=== PATIENT | female | born 2000 | race Caucasian/White ===

== ENCOUNTER 2021-07-08 16:11 | Emergency (ER) | payer BC ==
[2021-07-08 16:40] LABS: Absolute Lymphocytes (CBC) 2.1 K/uL (0.7-4.9); Hematocrit 32.2 % (36.0-45.0); Lymphocytes % 23.2 % (15.3-44.8); MPV 7.5 fL (7.6-11.3); RBC Red Blood Cell Count 3.58 M/uL (3.86-4.86)
[2021-07-08 17:02] LABS: ALT/SGPT 16 U/L (12-78); AST/SGOT 11 U/L (15-37); Albumin 2.6 g/dL (3.4-5.0); Alkaline Phosphatase 59 U/L (45-117); BUN Blood Urea Nitrogen 9 mg/dL (7-18); Bicarbonate 20 mmol/L (21-32); Bilirubin Total 0.2 mg/dL (0.2-1.0); Glucose Level 106 mg/dL (74-106); Potassium 3.1 mmol/L (3.5-5.1); Protein, Total 6.8 g/dL (6.4-8.2); Sodium Level 137 mmol/L (136-145)
--- NOTE | 2021-07-08 17:20 | RAD REPORT ---
EXAM DESCRIPTION: US - OB Limited - 07/08/2021 5:00 pm CLINICAL HISTORY: with abdominal pain status post trauma COMPARISON: None FINDINGS: Limited examination performed to assess for viability, placenta, cervix and the amni otic fluid. A single live intrauterine is in cephalic presentation. The placenta is anterior. No subchorionic/ retroplacental bleed. The amniotic fluid is within normal limits. Cardiac activity 136 beats per minute beats per minute. Cervix 3.9 centimeters Right ovary appears normal in size and echotexture. Left ovary was not seen. Femur length 3.2 centimeters 19 weeks 6 days Right adnexal unremarkable. Limited evaluation of left at adnexa secondary overlying bowel gas IMPRESSION: A single live intrauterine in cephalic presentation No subchorionic/retroplacental bleed Normal amniotic fluid
[2021-07-08 17:21] LABS: Urine Blood Negative (Negative); Urine Glucose Negative (Negative); Urine Protein Negative (Negative); Urine Specific Gravity 1.015 (1.005-1.030); Urine pH 7.5 (5.0-7.0)
[2021-07-08] MEDS ORDERED: POTASSIUM 25 MEQ EFFERV TAB ONE (17:23)
[2021-07-08] MEDS ORDERED: NA CHLORIDE 0.9% 1,000 ML ONE (17:23)
--- NOTE | 2021-07-08 17:28 | ER ---
Nurse's Notes [facility] Name: Mignon Osei Age: 20 yrs Sex: Female : 2000 Arrival Date: 07/08/2021 Time: 16:13 Bed 24 Private MD: Diagnosis: Fall (on) (from) unspecified stairs and steps;18 weeks gestation of ;Contusion of abdominal wall;Hypokalemia Presentation: 07/08 16:15 Initial Sepsis Screen: Does the patient meet any 2 criteria? HR > 90 bpm. No. Patient's tb3 initial sepsis screen is negative. Does the patient have a suspected source of infection? No. Patient's initial sepsis screen is negative. Risk Assessment: Do you want to hurt yourself or someone else? Patient reports no desire to harm self or others. Onset of symptoms was July 08, 2021. Care prior to arrival: IV initiated. 20 GA, in the right antecubital area, Glucose check: 109. Activity prior to arrival: None. Transition of care: patient was not received from another setting of care. 16:15 Acuity: ALDO 3 tb3 16:37 Chief complaint: EMS states: Per EMS patient tripped and fell and began to have RUQ tb3 abdominal pain and lower abdominal pain and cramping. Patient reported pain 4/10. Denies vaginal bleeding or back pain. GCS 15. VS stable. 19wks gestation. . Coronavirus screen: Vaccine status: Patient reports being unvaccinated. At this time, the client does not indicate any symptoms associated with coronavirus-19. Ebola Screen: No symptoms or risks identified at this time. 16:37 Method Of Arrival: EMS: [facility] tb3 Triage Assessment: 16:45 General: Appears in no apparent distress. Behavior is calm, cooperative, appropriate tb3 for age. Pain: Complains of pain in abdomen Pain currently is 4 out of 10 on a pain scale. Quality of pain is described as aching, crampy. 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 - Social history:: Smoking status: Patient denies any tobacco usage or history of. Patient uses Patient/guardian denies using alcohol, street drugs, IV drugs, The patient lives No barriers to communication noted. - Family history:: not pertinent. - Code Status:: Full code. - Coronavirus screen:: The patient has NOT traveled to [place] in the past 14 days. Proceed with normal triage process as indicated. The patient has NOT had contact with known/suspected case of Coronavirus? Proceed with normal triage procedures. - Ebola Screening: : Patient negative for fever greater than or equal to 101.5 degrees Fahrenheit, and additional compatible Ebola Virus Disease symptoms Patient denies exposure to infectious person Patient denies travel to an Ebola-affected area in the 21 days before illness onset No symptoms or risks identified at this time. Screenin:00 Abuse screen: Denies threats or abuse. Denies injuries from another. Nutritional jl7 screening: No deficits noted. Tuberculosis screening: No symptoms or risk factors identified. Fall Risk IV access (20 points). Vital Signs: 16:37 BP 111 / 77 LA Sitting (auto/reg); Pulse 93 MON; Resp 18 S; Temp 98.4(O); Pulse Ox 99% tb3 on R/A; Weight 44.45 kg (R); Height 5 ft. 2 in. (157.48 cm) (R); Pain 4/10; 16:37 Body Mass Index 17.92 (44.45 kg, 157.48 cm) tb3 ED Course: 16:13 Patient arrived in ED. drew 16:13 Rigoberto Shabazz MD is Attending Physician. drew 16:24 Brain Anne RN is Primary Nurse. jl7 16:45 Triage completed. tb3 16:45 Arm band placed on. tb3 17:00 Patient has correct armband on for positive identification. jl7 17:01 US OB Limited In Process Unspecified. EDMS 17:28 Scottie Almanzar MD is Referral Physician. drew 17:56 No provider procedures requiring assistance completed. IV discontinued, intact, jl7 bleeding controlled, No redness/swelling at site. Pressure dressing applied. Administered Medications: 17:55 Drug: Potassium Effervescent Tablet 25 mEq Route: PO; jl7 17:55 Follow up: Response: Medication administered at discharge. jl7 17:56 Not Given (Patient Refused): NS 0.9% 1000 ml IV at 1 bolus Per protocol; 1000 mL bolus jl7 Outcome: 17:28 Discharge ordered by . drew 17:56 Discharged to home ambulatory. jl7 17:56 Condition: stable 17:56 Discharge instructions given to patient, family, Instructed on discharge instructions, follow up and referral plans. medication usage, Demonstrated understanding of instructions, follow-up care, medications, Prescriptions given X 1. 17:57 Patient left the ED. jl7 Signatures: Dispatcher [employer] EDMS Rigoberto Shabazz MD MD cha Leal, Jahala, RN RN jl7 Antonio Silva, RN RN tb3
--- NOTE | 2021-07-08 17:28 | EDPHYS ---
Physician Documentation [facility] Name: Mignon Osei Age: 20 yrs Sex: Female : 2000 Arrival Date: 07/08/2021 Time: 16:13 Bed 24 Private MD: ED Physician Rigoberto Shabazz HPI: 07/08 17:14 This 20 yrs old Female presents to ER via EMS with complaints of fall, drew stairs, right side pain, 18 week . 17:14 The patient presents with abdominal pain in the right upper quadrant, right lower drew quadrant. Onset: The symptoms/episode began/occurred just prior to arrival. The patient complains of pain in the right mid back and right low back. The pain does not radiate. Onset: The symptoms/episode began/occurred just prior to arrival. Modifying factors: The symptoms are alleviated by remaining still, the symptoms are aggravated by movement. The symptoms do not radiate. Associated signs and symptoms: The patient has no apparent associated signs or symptoms. The symptoms are described as crampy. 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 - Social history:: Smoking status: Patient denies any tobacco usage or history of. Patient uses Patient/guardian denies using alcohol, street drugs, IV drugs, The patient lives No barriers to communication noted. - Family history:: not pertinent. - Code Status:: Full code. - Coronavirus screen:: The patient has NOT traveled to [place] in the past 14 days. Proceed with normal triage process as indicated. The patient has NOT had contact with known/suspected case of Coronavirus? Proceed with normal triage procedures. - Ebola Screening: : Patient negative for fever greater than or equal to 101.5 degrees Fahrenheit, and additional compatible Ebola Virus Disease symptoms Patient denies exposure to infectious person Patient denies travel to an Ebola-affected area in the 21 days before illness onset No symptoms or risks identified at this time. ROS: 17:14 Constitutional: Negative for fever, chills, and weight loss, Eyes: Negative for injury, drew pain, redness, and discharge, ENT: Negative for injury, pain, and discharge, Neck: Negative for injury, pain, and swelling, Cardiovascular: Negative for chest pain, palpitations, and edema, Respiratory: Negative for shortness of breath, cough, wheezing, and pleuritic chest pain, Back: Negative for injury and pain, : Negative for injury, bleeding, discharge, and swelling, MS/Extremity: Negative for injury and deformity, Skin: Negative for injury, rash, and discoloration, Neuro: Negative for headache, weakness, numbness, tingling, and seizure, Psych: Negative for depression, anxiety, suicide ideation, homicidal ideation, and hallucinations, Allergy/Immunology: Negative for hives, rash, and allergies, Endocrine: Negative for neck swelling, polydipsia, polyuria, polyphagia, and marked weight changes, Hematologic/Lymphatic: Negative for swollen nodes, abnormal bleeding, and unusual bruising. 17:14 Abdomen/GI: Positive for abdominal distension, of the posterior aspect of right lateral abdomen and anterior aspect of right lateral abdomen. Exam: 17:14 Constitutional: This is a well developed, well nourished patient who is awake, alert, drew and in no acute distress. Head/Face: Normocephalic, atraumatic. Eyes: Pupils equal round and reactive to light, extra-ocular motions intact. Lids and lashes normal. Conjunctiva and sclera are non-icteric and not injected. Cornea within normal limits. Periorbital areas with no swelling, redness, or edema. ENT: Nares patent. No nasal discharge, no septal abnormalities noted. Tympanic membranes are normal and external auditory canals are clear. Oropharynx with no redness, swelling, or masses, exudates, or evidence of obstruction, uvula midline. Mucous membranes moist. Neck: Trachea midline, no thyromegaly or masses palpated, and no cervical lymphadenopathy. Supple, full range of motion without nuchal rigidity, or vertebral point tenderness. No Meningismus. Chest/axilla: Normal chest wall appearance and motion. Nontender with no deformity. No lesions are appreciated. Cardiovascular: Regular rate and rhythm with a normal S1 and S2. No gallops, murmurs, or rubs. Normal PMI, no JVD. No pulse deficits. Respiratory: Lungs have equal breath sounds bilaterally, clear to auscultation and percussion. No rales, rhonchi or wheezes noted. No increased work of breathing, no retractions or nasal flaring. Back: No spinal tenderness. No costovertebral tenderness. Full range of motion. Skin: Warm, dry with normal turgor. Normal color with no rashes, no lesions, and no evidence of cellulitis. MS/ Extremity: Pulses equal, no cyanosis. Neurovascular intact. Full, normal range of motion. Neuro: Awake and alert, GCS 15, oriented to person, place, time, and situation. Cranial nerves II-XII grossly intact. Motor strength 5/5 in all extremities. Sensory grossly intact. Cerebellar exam normal. Normal gait. 17:14 Abdomen/GI: Inspection: gravid appearance, is noted, Bowel sounds: normal, Palpation: mild abdominal tenderness, in the posterior aspect of right lateral abdomen, anterior aspect of right lateral abdomen, right upper quadrant and right lower quadrant, Liver: no appreciated palpable abnormalities, Hernia: not appreciated. Vital Signs: 16:37 BP 111 / 77 LA Sitting (auto/reg); Pulse 93 MON; Resp 18 S; Temp 98.4(O); Pulse Ox 99% tb3 on R/A; Weight 44.45 kg (R); Height 5 ft. 2 in. (157.48 cm) (R); Pain 4/10; 16:37 Body Mass Index 17.92 (44.45 kg, 157.48 cm) tb3 MDM: 16:13 Patient medically screened. drew 17:18 Differential diagnosis: UTI, non-specific abd pain, urinary tract infection. Data drew reviewed: vital signs, nurses notes, lab test result(s), radiologic studies, ultrasound. Data interpreted: nurse monitoring: rate is 93 beats/min, rhythm is regular, Pulse oximetry: on room air is 99 %. Counseling: I had a detailed discussion with the patient and/or guardian regarding: the historical points, exam findings, and any diagnostic results supporting the discharge/admit diagnosis, lab results, radiology results, the need for outpatient follow up, for definitive care, an OB/Gyne specialist. 07/08 16:15 Order name: CBC with Diff; Complete Time: 17:07 [facility] 07/08 16:15 Order name: Comprehensive Metabolic Panel; Complete Time: 17:07 [facility] 07/08 16:15 Order name: US OB Limited; Complete Time: 17:22 [facility] 07/08 16:15 Order name: Abo/rh Typing; Complete Time: 17:27 [facility] 07/08 17:21 Order name: Urine Dipstick-Ancillary; Complete Time: 17:22 [facility] 07/08 16:15 Order name: Urine Dipstick-Ancillary (obtain specimen); Complete Time: 17:32 drew Administered Medications: 17:55 Drug: Potassium Effervescent Tablet 25 mEq Route: PO; jl7 17:55 Follow up: Response: Medication administered at discharge. jl7 17:56 Not Given (Patient Refused): NS 0.9% 1000 ml IV at 1 bolus Per protocol; 1000 mL bolus jl7 Disposition Summary: 07/08/21 17:28 Discharge Ordered Location: Home drew Problem: new drew Symptoms: have improved drew Condition: Stable drew Diagnosis - Fall (on) (from) unspecified stairs and steps drew - 18 weeks gestation of drew - Contusion of abdominal wall drew - Hypokalemia drew Followup: drew - With: Private Physician - When: 2 - 3 days - Reason: Recheck today's complaints, Continuance of care, Re-evaluation by your physician Followup: drew - With: - When: 2 - 3 days - Reason: Recheck today's complaints, Re-evaluation by your physician Discharge Instructions: - Discharge Summary Sheet drew - Abdominal Pain During drew - Fall Prevention in the Home, Adult drew - Care drew - Second Trimester of drew - Potassium Content of Foods drew - Fall Prevention in the Home, Adult, [id number] drew - Hypokalemia drew Forms: - Medication Reconciliation Form drew - Thank You Letter drew - Antibiotic Education drew - Prescription Opioid Use drew Prescriptions: - Tylenol 325 mg Oral Tablet - take 2 tablets by ORAL route every 6 hours as needed; 1 bottle; Refills: 0, drew Product Selection Permitted Signatures: Dispatcher [employer] Rigoberto Sommer MD MD cha Leal, Jahala RN RN jl7 Antonio Silva RN RN tb3
[2021-07-08 18:03] VITALS: BP 111/77; TEMP 98.4; O2SAT 99
== END 2021-07-08 17:57 | disposition home or self-care (01) ==
LOC: ER 16:11
DX: O26.892 Other specified pregnancy related conditions, second trimester (principal); Z3A.18 18 weeks gestation of pregnancy; E87.6 Hypokalemia; S30.1XXA Contusion of abdominal wall, initial encounter; W10.9XXA Fall (on) (from) unspecified stairs and steps, initial encounter; Y93.9 Activity, unspecified; Y92.9 Unspecified place or not applicable; J45.909 Unspecified asthma, uncomplicated
CPT/HCPCS: 85025; 36415; 86900; 86901; 81003; 80053; 76815; 99284; J7030